=== PATIENT | female | born 1970 | race African-American/Black ===

== ENCOUNTER 2018-10-20 14:35 | Emergency (ER) | payer OTHER ==
[~2018-10-20] VITALS: Ht 167.6 cm; Wt 78.9 kg
[~2018-10-20 14:35] MED LIST: BP MED; CRESTOR10 MG PO; FLEXERIL PO; GLUCOPHAGE1000 MG PO; HUMALOG100 UNIT/1 SUBQ; IRON325 PO; LANTUS100 UNIT/M SUBQ; LISINOPRIL5 MG PO; NYSTATIN15 GM TP; OXYCODONE HCL 55 MG PO; TOUJEO SUBQ; VITAMIN D1000 UNIT PO
[2018-10-20] MEDS ORDERED: IBUPROFEN 600600 M1 PO (16:05)
[2018-10-20 16:30] VITALS: BP 139/72
== END 2018-10-20 16:30 | disposition home or self-care (01) ==
LOC: ER 14:35
DX: S39.012A Strain of muscle, fascia and tendon of lower back, initial encounter (principal); M25.561 Pain in right knee; M25.511 Pain in right shoulder; I10 Essential (primary) hypertension; E11.9 Type 2 diabetes mellitus without complications; K21.9 Gastro-esophageal reflux disease without esophagitis; G47.30 Sleep apnea, unspecified; Z98.890 Other specified postprocedural states; Z88.6 Allergy status to analgesic agent; Z88.8 Allergy status to other drugs, medicaments and biological substances; Z79.4 Long term (current) use of insulin; W01.0XXA Fall on same level from slipping, tripping and stumbling without subsequent striking against object, initial encounter; Y92.89 Other specified places as the place of occurrence of the external cause; Y99.0 Civilian activity done for income or pay; Y99.8 Other external cause status